=== PATIENT | male | born 1940 | race Caucasian/White ===

== ENCOUNTER 2020-10-31 14:00 | Inpatient (IN) | payer MEDICARE ==
[2021-01-27 12:18] VITALS: BMI 27.6
[2021-01-28] MEDS ORDERED: Tranexamic Acid 1,000 MG/10 ML VIAL ONE (07:36)
[2021-01-28] MEDS ORDERED: Sodium Chloride 0.9% 100 ML ONE (07:37)
[2021-01-28] MEDS ORDERED: Vancomycin 1 GM/200 ML BAG ONE (07:37)
[2021-01-28] MEDS ORDERED: Fentanyl 100 MCG/2 ML VIAL ONE ×3 (08:02→11:06)
[2021-01-28] MEDS ORDERED: Midazolam HCl 2 mg/2 ml Vial ONE (08:02)
[2021-01-28] MEDS ORDERED: Hydrocerin (Eucerin) Cream 120 gm Jar TOP PRN (08:15)
[2021-01-28] MEDS ORDERED: traMADol HCl 50 MG TAB PO PRN ×2 (08:15)
[2021-01-28] MEDS ORDERED: diphenhydrAMINE 50 MG/ML VIAL IM PRN (08:15)
[2021-01-28] MEDS ORDERED: Zolpidem Tartrate 5 MG TAB PO PRN ×2 (08:15→08:45)
[2021-01-28] MEDS ORDERED: Ondansetron PF 4 MG/2 ML Vial IVP PRN ×2 (08:15→08:45)
[2021-01-28] MEDS ORDERED: Promethazine HCl 25 MG SUPP PR PRN (08:15)
[2021-01-28] MEDS ORDERED: diphenhydrAMINE 50 MG/ML VIAL IVP PRN (08:15)
[2021-01-28] MEDS ORDERED: Bupivacaine 0.25% 10 ML VIAL EPIDURAL PRN (08:15)
[2021-01-28] MEDS ORDERED: Ketorolac Tromethamine 30 MG/ML VIAL IVP PRN (08:15)
[2021-01-28] MEDS ORDERED: Naloxone HCl 0.4 mg/ml Vial IVP PRN (08:15)
[2021-01-28] MEDS ORDERED: diphenhydrAMINE 25 MG CAP PO PRN ×2 (08:15→08:45)
[2021-01-28] MEDS ORDERED: Naloxone HCl 0.4 mg/ml Vial IV PRN (08:15)
[2021-01-28] MEDS ORDERED: HYDROcodone/Acetaminophen 5/325 mg Tablet PO PRN ×2 (08:15)
[2021-01-28] MEDS ORDERED: Promethazine HCl 25 MG/ML VIAL IM PRN ×3 (08:15→10:46)
[2021-01-28] MEDS ORDERED: Fentanyl 100 MCG/2 ML VIAL SLOW IVP PRN (08:45)
[2021-01-28] MEDS ORDERED: Acetaminophen 325 MG TAB PO PRN (08:45)
[2021-01-28] MEDS ORDERED: HYDROcodone/Acetaminophen 10/325 mg Tablet PO PRN (08:45)
[2021-01-28] MEDS ORDERED: Bupivacaine 0.25% HCL 30 ML VIAL ONE (08:57)
[2021-01-28] MEDS ORDERED: PROPOFOL 200 MG/20 ML VIAL ONE (09:08)
[2021-01-28] MEDS ORDERED: Rocuronium Bromide 10 MG/ML (10ML VIAL) ONE (09:08)
[2021-01-28] MEDS ORDERED: Lidocaine 2% w/Epinephrine 1:200K 20 ML VIAL ONE (09:08)
[2021-01-28] MEDS ORDERED: Ondansetron PF 4 MG/2 ML Vial ONE (09:08)
[2021-01-28] MEDS ORDERED: Glycopyrrolate 0.2 MG/ML 5 ML SYRINGE ONE (09:08)
[2021-01-28] MEDS ORDERED: Lidocaine 1% PF 5 ML VIAL ONE (09:08)
[2021-01-28] MEDS ORDERED: Phenylephrine 10 MG/ML VIAL ONE (09:19)
[2021-01-28] MEDS ORDERED: SUGAMMADEX SODIUM 200 MG/2 ML VIAL ONE (10:34)
[2021-01-28] MEDS ORDERED: Ondansetron HCl/PF 4 MG/2 ML Vial IVP PRN (10:46)
[2021-01-28] MEDS ORDERED: Promethazine HCl 25 MG/ML VIAL SLOW IVP PRN (10:46)
[2021-01-28] MEDS: Aspirin 81 mg Enteric Coated Tablet PO SCH ×2 (14:51→20:04)
[2021-01-28] MEDS: Ferrous Gluconate 324 MG TAB PO SCH ×2 (14:51→20:04)
[2021-01-28] MEDS: Sodium Chloride 0.9% 1,000 ML IV SCH ×2 (14:51→20:07)
[2021-01-28] MEDS: Lisinopril/Hydrochlorothiazide 20 mg/12.5 mg Tablet PO SCH (14:52)
[2021-01-28] MEDS: Senokot S 8.6-50 MG TAB PO SCH ×2 (14:52→20:05)
[2021-01-28] MEDS: Multivitamin W/ Minerals 1 TAB PO SCH (14:52)
[2021-01-28] MEDS: CEFAZOLIN 2 GM in Premix Bag 1 BAG IVPB SCH (16:07)
[2021-01-28] MEDS: Atorvastatin Calcium 20 MG TAB PO SCH (20:04)
[2021-01-28] MEDS: HYDROcodone/Acetaminophen 10/325 mg Tablet PO PRN (21:09)
[2021-01-29] MEDS: CEFAZOLIN 2 GM in Premix Bag 1 BAG IVPB SCH (00:22)
[2021-01-29] MEDS: Fentanyl 5 mcg/Bup 0.075% Cadd 100 ML EPIDURAL SCH ×2 (04:16→20:40)
[2021-01-29 05:44] LABS: Hemoglobin 11.1 g/dL (14.0-18.0); Mean Corpuscular HGB CONC 33.1 g/dL (32.0-36.0); Mean Corpuscular Hemoglobin 30.6 pg (27.0-31.0); Mean Corpuscular Volume 92.3 fL (78.0-98.0); Mean Platelet Volume 9.4 fL (7.4-10.4); Platelet Count 153 thou/uL (130-400); Red Blood Cell (RBC) Count 3.65 mill/uL (4.70-6.10); White Blood Cell (WBC) Count 7.9 thou/uL (4.8-10.8)
[2021-01-29] MEDS: Sodium Chloride 0.9% 1,000 ML IV SCH ×3 (05:48→22:19)
[2021-01-29] MEDS: Levothyroxine Sodium 25 MCG TAB PO SCH (05:58)
[2021-01-29] MEDS: Senokot S 8.6-50 MG TAB PO SCH ×2 (08:24→20:40)
[2021-01-29] MEDS: Multivitamin W/ Minerals 1 TAB PO SCH (08:24)
[2021-01-29] MEDS: Ferrous Gluconate 324 MG TAB PO SCH ×2 (08:24→20:40)
[2021-01-29] MEDS: Aspirin 81 mg Enteric Coated Tablet PO SCH ×2 (08:24→20:40)
[2021-01-29] MEDS: Lisinopril/Hydrochlorothiazide 20 mg/12.5 mg Tablet PO SCH (08:24)
[2021-01-29] MEDS: Atorvastatin Calcium 20 MG TAB PO SCH (20:40)
[2021-01-30] MEDS: Levothyroxine Sodium 25 MCG TAB PO SCH (05:26)
[2021-01-30] MEDS: Senokot S 8.6-50 MG TAB PO SCH (09:15)
[2021-01-30] MEDS: Aspirin 81 mg Enteric Coated Tablet PO SCH (09:16)
[2021-01-30] MEDS: Multivitamin W/ Minerals 1 TAB PO SCH (09:16)
[2021-01-30] MEDS: Ferrous Gluconate 324 MG TAB PO SCH (09:16)
[2021-01-30] MEDS: Lisinopril/Hydrochlorothiazide 20 mg/12.5 mg Tablet PO SCH (09:16)
[2021-01-30] MEDS: Sodium Chloride 0.9% 1,000 ML IV SCH (09:49)
[2021-01-30] MEDS: HYDROcodone/Acetaminophen 10/325 mg Tablet PO PRN ×2 (10:16→18:38)
[2021-01-30 16:07] VITALS: BP 98/60; TEMP 98
== END 2021-01-30 19:21 | disposition home or self-care (01) | DRG 470 ==
LOC: SJJU 01-28 06:26
PROVIDERS: ADMIT Orthopaedic Surgery; ATTEND Orthopaedic Surgery
PROC: 0SR9049 Replacement of Right Hip Joint with Ceramic on Polyethylene Synthetic Substitute, Cemented, Open Approach (ICD-10-PCS; principal; 2021-01-28)
DX: M16.12 Unilateral primary osteoarthritis, left hip (principal); M17.11 Unilateral primary osteoarthritis, right knee; I10 Essential (primary) hypertension; E78.00 Pure hypercholesterolemia, unspecified; M10.9 Gout, unspecified; Z20.822 Contact with and (suspected) exposure to COVID-19; Z87.891 Personal history of nicotine dependence
CPT/HCPCS: 36415; 85027; J0690; J1200; J1885; J2250; J2370; J2405; J2704; J3010; J3370; J3490; S0020

== ENCOUNTER 2021-01-23 13:37 | Outpatient (CLI) | payer MEDICARE ==
[2021-01-23 14:38] LABS: #Eosinphils 0.3 10x3/uL (0.0-0.5); #Monocytes 0.5 10x3/uL (0.0-1.1); #Neutrophils 4.5 10x3/uL (1.5-8.4); %Basophils 0.3 % (0.0-2.0); %Eosinophils 4.6 % (0.0-6.0); %Lymphocytes 18.6 % (18.0-47.0); %Monocytes 7.5 % (0.0-10.0); %Neutrophils 68.7 % (40.0-75.0); Hemoglobin 14.9 g/dL (13.5-17.5); Mean Corpuscular HGB CONC 32.9 g/dL (32.0-36.0); Mean Corpuscular Hemoglobin 30.2 pg (27.0-33.0); Mean Corpuscular Volume 91.7 fl (81.2-95.1); Mean Platelet Volume 11.7 fl (7.4-10.4); Platelet Count 236 10x3/uL (150-450); RBC Distribution Width 12.9 % (11.5-14.5); Red Blood Cell (RBC) Count 4.94 10x6/uL (4.32-5.72); White Blood Cell (WBC) Count 6.5 10x3/uL (3.5-10.5)
[2021-01-23 14:40] LABS: Bilirubin Neg (Negative); Blood, Urine Negative (Negative); Clarity Clear (Clear); Glucose, Urine (Dipstick) Normal (Negative); Ketone, Urine Negative (Negative); Leukocyte Negative (Negative); Nitrite Negative (Negative); Protein, Urine (Dipstick) Negative (Neg-Trace); Specific Gravity, Urine 1.015 (1.002-1.036); Urobilinogen Normal mg/dL (Less than 2)
[2021-01-23 14:44] LABS: Anion Gap 11 mmol/L (10-20); BUN (Urea Nitrogen) 29 mg/dL (8.4-25.7); Calc. Creatinine Clearance 0 mL/min (70-130); Calcium 10.1 mg/dL (7.8-10.44); Carbon Dioxide 31 mmol/L (23-31); Chloride 103 mmol/L (98-107); Glucose 94 mg/dL (83-110); Potassium 4.5 mmol/L (3.5-5.1); Sodium 140 mmol/L (136-145)
[2021-01-23 14:48] LABS: Bacteria/HPF Rare-Few HPF (None Seen); Mucous/LPF 1+ LPF (<2+); RBC/HPF 0-3 HPF (0-3); Squamous Epithelial 0-3 HPF (0-3); WBC/HPF 0-3 HPF (0-3)
[2021-01-23 14:55] LABS: INR-International Normal Ratio 0.9; Prothrombin Time 10.3 sec (9.5-12.1)
[2021-01-23 21:53] LABS: SARS-CoV-2 PCR by NAA Not Detected (NotDetected)
== END 2021-01-23 13:38 | disposition home or self-care (01) ==
LOC: LABBT 13:37
PROVIDERS: ATTEND Orthopaedic Surgery
DX: Z01.818 Encounter for other preprocedural examination (principal); M16.12 Unilateral primary osteoarthritis, left hip; Z20.822 Contact with and (suspected) exposure to COVID-19
CPT/HCPCS: 80048; 81001; 85025; 85610; 87081; 93005; U0003; U0005; 87635; 93010